=== PATIENT | female | born 1945 | race African-American/Black ===

== ENCOUNTER 2024-04-04 08:00 | Inpatient (IN) | payer OTHER ==
[2024-04-02 15:08] VITALS: BMI 27.9
[2024-04-04] MEDS ORDERED: BUPIVACAINE HCL/PF 0.5% (5 MG/ML) 30 ML VIAL IJ ONE (09:43)
[2024-04-04] MEDS ORDERED: BUPIVACAINE LIPOSOME/PF (EXPAREL) 266 MG/20 ML VIAL ONE (09:43)
[2024-04-04] MEDS ORDERED: MAGNESIUM HYDROX 2400MG/30ML ORAL SUSPENSION 30 ML CUP PO PRN (09:44)
[2024-04-04] MEDS ORDERED: MAG HYDROX/AL HYDROX/SIMETH 30 ML UNIT-DOSE CUP PO PRN (09:44)
[2024-04-04] MEDS ORDERED: ACETAMINOPHEN INJECTION 100 ML IVPB ONE (09:44)
[2024-04-04] MEDS ORDERED: MIDAZOLAM HCL 2 MG/2 ML SINGLE DOSE VIAL ONE (09:44)
[2024-04-04] MEDS ORDERED: FLUTICASONE PROP 0.05% 16 GM NASAL SPRAY NS PRN (09:47)
[2024-04-04] MEDS ORDERED: PROPOFOL 20 ML ONE (10:27)
[2024-04-04] MEDS ORDERED: ONDANSETRON 4 MG/2 ML VIAL ONE ×2 (10:27→13:03)
[2024-04-04] MEDS ORDERED: DEXAMETHASONE SOD PHOSPHATE 4 MG/1 ML VIAL ONE (10:27)
[2024-04-04] MEDS ORDERED: KETOROLAC TROMETHAMINE 30 MG/1 ML VIAL ONE (10:28)
[2024-04-04] MEDS ORDERED: ACETAMINOPHEN 325 MG TABLET (FP) PO PRN (10:47)
[2024-04-04] MEDS ORDERED: oxyCODONE HCL 5 MG TABLET PO PRN (10:47)
[2024-04-04] MEDS ORDERED: FENTANYL CITRATE/PF 50 MCG/ML VIAL ONE ×2 (12:49→13:03)
[2024-04-04] MEDS: KETOROLAC TROMETHAMINE 30 MG/1 ML VIAL IVPUSH ONE (12:50)
[2024-04-04] MEDS: ONDANSETRON 4 MG/2 ML VIAL IVPUSH PRN (13:15)
[2024-04-04] MEDS: CELECOXIB 100 MG CAPSULE PO SCH (14:42)
[2024-04-04] MEDS: TRANEXAMIC ACID 1000 MG/10 ML VIAL IVPUSH ONE ×2 (14:42→21:06)
[2024-04-04] MEDS: CEFAZOLIN 2 GM in DEXTROSE 5%-WATER - 50 ML IVPB ONE (14:42)
[2024-04-04] MEDS: ACETAMINOPHEN 1000 MG/100 ML BAG IVPB SCH (14:42)
[2024-04-04] MEDS: CHOLECALCIFEROL (VIT D3) 1,000 UNIT (25 MCG) TABLET PO SCH (14:43)
[2024-04-04] MEDS: SENNOSIDES/DOCUSATE COMBO (SENNA PLUS) TABLET (UD) PO SCH (14:43)
[2024-04-04] MEDS: MULTIVITAMINS (DAILY MVI) TABLET (FP) PO SCH (14:43)
[2024-04-04] MEDS: LACTATED RINGERS SOLUTION 1,000 ML IV SCH (14:43)
[2024-04-04] MEDS: FAMOTIDINE 20 MG TABLET PO SCH (14:43)
[2024-04-04] MEDS: ASCORBIC ACID 500 MG TABLET (FP) PO SCH (14:43)
[2024-04-04] MEDS: oxyCODONE HCL 5 MG TABLET PO PRN (15:07)
[2024-04-04] MEDS: traMADol HCL 50 MG TABLET PO PRN (17:55)
[2024-04-04] MEDS: DEXAMETHASONE 4 MG TABLET (FP) PO ONE (18:07)
[2024-04-04] MEDS: CEFAZOLIN SODIUM 2 GM in DEXTROSE 5%-WATER 100 ML IVPB SCH (18:07)
[2024-04-04] MEDS: HYDROXYCHLOROQUINE SO4 200 MG TABLET (FP) PO SCH (21:06)
[2024-04-04] MEDS: ASPIRIN 81 MG CHEWABLE TABLETS PO SCH (21:06)
[2024-04-04] MEDS: NIFEdipine E.R 60 MG TABLET PO SCH (21:06)
[2024-04-04] MEDS ORDERED: PATIENT'S OWN MEDICATION (NON-FORMULARY) (Famotidine 40 MG Tablet) PO SCH (22:00)
[2024-04-05 05:57] VITALS: RESP 18
[2024-04-05] MEDS: LEVOTHYROXINE NA 75 MCG TABLET (FP) PO SCH (06:13)
[2024-04-05] MEDS ORDERED: DEXAMETHASONE 4 MG TABLET (FP) PO ONE (10:00)
[2024-04-05] MEDS: DEXAMETHASONE 4 MG TABLET (FP) PO ONE (10:14)
[2024-04-05] MEDS: TRANEXAMIC ACID 1000 MG/10 ML VIAL IVPUSH ONE (10:14)
[2024-04-05 14:22] VITALS: BP 139/69; PULSE 63; TEMP 97.9
[2024-04-05] MEDS ORDERED: DEXAMETHASONE 4 MG TABLET (FP) PO SCH (22:00)
[2024-04-07] MEDS ORDERED: FUROSEMIDE 20 MG TABLET (FP) PO SCH (10:00)
== END 2024-04-05 16:51 | disposition home or self-care (01) | DRG 470 ==
LOC: FM/S 08:00
PROVIDERS: ADMIT Orthopaedic Surgery; ATTEND Orthopaedic Surgery
PROC: 0SRC0J9 Replacement of Right Knee Joint with Synthetic Substitute, Cemented, Open Approach (ICD-10-PCS; principal; 2024-04-04 10:39)
DX: M17.11 Unilateral primary osteoarthritis, right knee (principal); I10 Essential (primary) hypertension; E78.5 Hyperlipidemia, unspecified; E03.9 Hypothyroidism, unspecified; I35.1 Nonrheumatic aortic (valve) insufficiency; M32.9 Systemic lupus erythematosus, unspecified; M81.0 Age-related osteoporosis without current pathological fracture
CPT/HCPCS: 73560-TC-RT-FY; 94760; 97010-GP; 97116-GP; 97162-GP; C1776; C1889; J0131